=== PATIENT | female | born 2000 | race Caucasian/White ===

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

== ENCOUNTER 2020-04-14 19:52 | Emergency (ER) | payer OTHER ==
[~2020-04-14] VITALS: Ht 160 cm; Wt 81.6 kg
[2020-04-14] MEDS ORDERED: OMNICEF300 MG PO (20:48)
[2020-04-14] MEDS ORDERED: ZYRTEC10 M2 PO (20:48)
== END 2020-04-14 21:02 | disposition home or self-care (01) ==
LOC: ED 19:52
DX: H60.91 Unspecified otitis externa, right ear (principal)

== ENCOUNTER → 2021-08-23 | Outpatient (CLI) | payer OTHER ==
[~2021-08-23] MED LIST changes: +OMNICEF300 MG PO; +ZYRTEC10 M2 PO
== END | disposition home or self-care (01) ==
LOC: COVID19 15:30
PROVIDERS: ATTEND Internal Medicine
DX: Z20.822 Contact with and (suspected) exposure to COVID-19 (principal)

== ENCOUNTER 2022-09-16 00:16 | Emergency (ER) | payer OTHER ==
[~2022-09-16] VITALS: Ht 160 cm; Wt 90.7 kg
[2022-09-16] MEDS ORDERED: FLUOXETINE HYDR20 M1 PO (00:33)
[2022-09-16 01:04] LABS: BASO % 0.4 % (0.0-1.0); EOS # 0.1 10*3/uL (0.0-0.4); HEMATOCRIT 40.7 % (37.0-47.0); LYMPH # 1.6 10*3/uL (1.3-4.4); LYMPH % 21.5 % (27.0-41.0); MEAN CELL VOLUME 86.8 fl (81.0-99.0); MEAN CORPUSCULAR HGB 28.8 pg (27.0-31.0); MEAN CORPUSCULAR HGB CONC 33.2 g/dl (33.0-37.0); MEAN PLATELET VOLUME 10.2 fl (9.6-12.3); MONO # 0.6 10*3/uL (0.1-1.0); MONO % 7.7 % (3.0-9.0); NEUT % 69.1 % (47.0-73.0); PLATELET COUNT AUTOMATED 307 10*3/uL (130-400); RED BLOOD COUNT 4.69 10*6/uL (4.10-5.10); WHITE BLOOD COUNT 7.3 10*3/uL (4.8-10.8)
[2022-09-16 01:31] LABS: ALKALINE PHOSPHATASE 68 U/L (46-116); BUN 7 mg/dl (9-23); CHLORIDE 104 mmol/L (98-107); LIPASE 33 U/L (12-53); POTASSIUM 3.9 mmol/L (3.4-5.1); SGPT/ALT 28 U/L (10-49); TOTAL PROTEIN 7.5 gm/dL (6.0-8.0)
[2022-09-16] MEDS ORDERED: PROTONIX40 MG PO (02:34)
[2022-09-16] MEDS ORDERED: Ondansetron4 MG PO (02:34)
== END 2022-09-16 02:38 | disposition home or self-care (01) ==
LOC: ED 00:16
PROVIDERS: Student in an Organized Health Care Education/Training Program
DX: K29.00 Acute gastritis without bleeding (principal); Z98.890 Other specified postprocedural states; F10.90 Alcohol use, unspecified, uncomplicated

== ENCOUNTER → 2022-10-02 | Day surgery (SDC) | payer OTHER ==
[~2022-10-02] VITALS: Ht 160 cm; Wt 95.3 kg
[~2022-10-02] MED LIST changes: +FLUOXETINE HYDR20 M1 PO; +Ondansetron4 MG PO; +PROTONIX40 MG PO
[2022-10-02 08:40] VITALS: BP 152/30
[2022-10-02 09:23] VITALS: BP 115/71
[2022-10-02 09:35] VITALS: BP 124/80
[2022-10-02 09:58] VITALS: BP 124/88
== END | disposition home or self-care (01) ==
LOC: SDC 09-28 11:00
PROVIDERS: ATTEND Surgery
DX: K21.9 Gastro-esophageal reflux disease without esophagitis (principal); K29.50 Unspecified chronic gastritis without bleeding; F41.9 Anxiety disorder, unspecified

== ENCOUNTER → 2022-10-06 | Outpatient (CLI) | payer OTHER | END | disposition home or self-care (01) | LOC: US 00:21 | PROVIDERS: ATTEND Surgery | DX: K76.0 Fatty (change of) liver, not elsewhere classified (principal); N32.89 Other specified disorders of bladder; K21.9 Gastro-esophageal reflux disease without esophagitis ==

== ENCOUNTER → 2022-10-30 | Outpatient (CLI) | payer OTHER | END | disposition home or self-care (01) | LOC: NM 10-26 08:00 | PROVIDERS: ATTEND Surgery | DX: R10.10 Upper abdominal pain, unspecified (principal) ==

== ENCOUNTER → 2023-07-11 | Outpatient (CLI) | payer OTHER | END | disposition home or self-care (01) | LOC: MRI 07-03 13:00 | PROVIDERS: ATTEND Urology | DX: N28.1 Cyst of kidney, acquired (principal) ==

== ENCOUNTER → 2024-11-04 | Outpatient (CLI) | payer OTHER | END | disposition home or self-care (01) | LOC: RESCLI 15:34 → LAB 15:34 | PROVIDERS: ATTEND Internal Medicine | DX: R53.83 Other fatigue (principal); K21.9 Gastro-esophageal reflux disease without esophagitis; N92.0 Excessive and frequent menstruation with regular cycle; Z79.899 Other long term (current) drug therapy ==

== ENCOUNTER → 2024-11-18 | Outpatient (CLI) | payer OTHER ==
[2024-11-18 13:30] LABS: FREE T4 1.28 ng/dl (0.89-1.76)
== END | disposition home or self-care (01) ==
LOC: LAB 11:24
PROVIDERS: ATTEND Student in an Organized Health Care Education/Training Program
DX: R53.83 Other fatigue (principal)

== ENCOUNTER → 2024-12-02 | Outpatient (CLI) | payer OTHER ==
[2024-12-02 15:43] LABS: BASO % 0.5 % (0.0-1.0); EOS # 0.1 10*3/uL (0.0-0.4); EOS % 2.5 % (1.0-4.0); HEMATOCRIT 39.9 % (37.0-47.0); MEAN CELL VOLUME 82.6 fl (81.0-99.0); MEAN CORPUSCULAR HGB 25.9 pg (27.0-31.0); MEAN CORPUSCULAR HGB CONC 31.3 g/dl (33.0-37.0); MEAN PLATELET VOLUME 10.3 fl (9.6-12.3); MONO # 0.5 10*3/uL (0.1-1.0); MONO % 9.2 % (3.0-9.0); NEUT # 3.3 10*3/uL (2.3-7.9); NEUT % 59.2 % (47.0-73.0); PLATELET COUNT AUTOMATED 316 10*3/uL (130-400); RED BLOOD COUNT 4.83 10*6/uL (4.10-5.10); RED CELL DISTRI WIDTH 14.4 % (0-14.5); WHITE BLOOD COUNT 5.6 10*3/uL (4.8-10.8)
[2024-12-02 16:28] LABS: ALKALINE PHOSPHATASE 64 U/L (46-116); BUN 8 mg/dl (9-23); CHLORIDE 106 mmol/L (98-107); POTASSIUM 4.2 mmol/L (3.4-5.1); SGPT/ALT 28 U/L (5-49); TOTAL PROTEIN 7.7 gm/dL (6.0-8.0)
[2024-12-02 16:31] LABS: VITAMIN D, 25-HYDROXY 8.1 ng/mL (30-100)
== END | disposition home or self-care (01) ==
LOC: LAB 03:29 → RESCLI 03:29
PROVIDERS: ATTEND Internal Medicine
DX: R53.83 Other fatigue (principal)

== ENCOUNTER → 2025-03-03 | Outpatient (CLI) | payer OTHER ==
[2025-03-03 14:41] LABS: BASO # 0.0 10*3/uL (0.0-0.1); BASO % 0.5 % (0.0-1.0); EOS # 0.1 10*3/uL (0.0-0.4); EOS % 1.9 % (1.0-4.0); MEAN CELL VOLUME 84.1 fl (81.0-99.0); MEAN CORPUSCULAR HGB 26.7 pg (27.0-31.0); MEAN PLATELET VOLUME 10.3 fl (9.6-12.3); MONO # 0.5 10*3/uL (0.1-1.0); MONO % 8.5 % (3.0-9.0); NEUT # 3.8 10*3/uL (2.3-7.9); NEUT % 65.1 % (47.0-73.0); NUCLEATED RED BLOOD CELL 0.0 % (0.0-0.0); NUCLEATED RED BLOOD CELL 0.0 10*3/uL (0.0-0.0); PLATELET COUNT AUTOMATED 302 10*3/uL (130-400); RED CELL DISTRI WIDTH 14.5 % (0-14.5)
[2025-03-03 15:31] LABS: VITAMIN D, 25-HYDROXY 54.9 ng/mL (30-100)
== END | disposition home or self-care (01) ==
LOC: RESCLI 02:58
PROVIDERS: ATTEND Internal Medicine
DX: F32.9 Major depressive disorder, single episode, unspecified (principal); N92.0 Excessive and frequent menstruation with regular cycle; K21.9 Gastro-esophageal reflux disease without esophagitis; D50.9 Iron deficiency anemia, unspecified; E55.9 Vitamin D deficiency, unspecified

== ENCOUNTER → 2025-04-07 | Outpatient (CLI) | payer OTHER | END | disposition home or self-care (01) | LOC: RESCLI 01:08 | PROVIDERS: ATTEND Internal Medicine | DX: F32.9 Major depressive disorder, single episode, unspecified (principal); D50.9 Iron deficiency anemia, unspecified; K21.9 Gastro-esophageal reflux disease without esophagitis; N89.8 Other specified noninflammatory disorders of vagina ==

== ENCOUNTER → 2025-07-07 | Outpatient (CLI) | payer OTHER ==
[2025-07-07 15:51] LABS: VITAMIN D, 25-HYDROXY 29.8 ng/mL (30-100)
== END | disposition home or self-care (01) ==
LOC: LAB 01:08 → RESCLI 01:08
PROVIDERS: ATTEND Family Medicine
DX: D55.9 Anemia due to enzyme disorder, unspecified (principal); D50.9 Iron deficiency anemia, unspecified